=== PATIENT | female | born 1935 | race Caucasian/White ===

== ENCOUNTER 2023-07-05 13:16 | Emergency (ER) | payer MEDICARE, OTHER, SELFPAY ==
--- NOTE | ~2023-07-05 | XR_ITS ---
XR scapula LT DATE: 07/05/2023 14:09 INDICATION: Recent fall. Scapular pain for 6 weeks. TECHNIQUE: AP and lateral views COMPARISON: None FINDINGS: There is diffuse osteopenia. There is mild osteophyte is at the left glenohumeral joint. Fracture or bone destruction of the left scapula is detected. Scoliosis and degenerative spurring of the thoracic spine. IMPRESSION: Osteopenia Mild glenohumeral osteoarthritis Reviewed, dictated and finalized at location A.
[2023-07-05 13:40] VITALS: PULSE 52; RESP 16; TEMP 36.7
--- NOTE | 2023-07-05 13:55 | ED.GENADULT ---
HPI - General Adult General Chief complaint: Extremity Injury, Upper Stated complaint: Female Urogenital Time Seen by Provider: 07/05/23 13:38 Source: patient, family and RN notes reviewed History of Present Illness HPI narrative: Family presents patient today with a few complaints. Patient has been having left posterior shoulder pain for 4-6 weeks. Unsure of causes. Pain increases with movement. Denies numbness or tingling. Denies radiation of the pain. Patient has been taking Tylenol a without relief. Pain decreases her sleep at night. She has not had her shoulder evaluated prior to arrival today. Patient fell 2 days ago at home while using her walker. She does have a small skin tear on the right forearm that is dressed with a large Band-Aid. Denies any additional complaints related to this fall. They also believe patient may have a UTI. She has had 1 episode of vomiting per week for the past 2 weeks. Patient denies any urinary symptoms to include dysuria, frequency, abdominal pain, hematuria. States that she knows she does not drink enough water, but this is a chronic issue for her. 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 Family deny any acute mental status changes, but does report some increased confusion over the last several months. Related Data Home Medications Medication Instructions Recorded Confirmed carbidopa 10 mg-levodopa 100 mg 1 tablet PO BID 01/15/23 01/15/23 tablet docosahexaenoic acid (dha)-epa 1 cap PO DAILY 01/15/23 01/15/23 capsule latanoprost 0.005 % eye drops 1 drp EACH EYE QPM 01/15/23 01/15/23 levothyroxine 75 mcg tablet 75 mcg PO DAILY 01/15/23 01/15/23 losartan 100 mg tablet 100 mg PO DAILY 01/15/23 01/15/23 multivitamin 1 tablet PO DAILY 01/15/23 01/15/23 apixaban 2.5 mg tablet (Eliquis) 2.5 mg PO DAILY 07/05/23 07/05/23 Allergies Allergy/AdvReac Type Severity Reaction Status Date / Time No Known Allergies Allergy Verified 07/05/23 14:17 Review of Systems Review of Systems: CONSTITUTIONAL: Denies body aches, fever, chills, or sweats. EYES: Denies visual changes, redness, or discharge. ENT: Denies rhinorrhea, congestion, sore throat, or otalgia. CARDIOVASCULAR: Denies chest pain, palpitations, or edema. RESPIRATORY: Denies cough or dyspnea. GASTROINTESTINAL: Denies abdominal pain, nausea, or diarrhea.+ vomiting GENITOURINARY: Denies dysuria or hematuria. SKIN: Denies rash, itching, or wounds. MUSCULOSKELETAL: Denies back pain, or myalgia.+ left shoulder pain NEUROLOGIC: Denies headache, numbness, tingling, or weakness. PSYCH: Denies depression or anxiety. [facility], [facility] Social History Social History Smoking status: Never smoker Second hand tobacco smoke exposure: No Alcohol intake: never Substance use: never Spiritual care concerns: No Comments At time of signature, I have reviewed and agree with nursing past medical, surgical, social and family history unless otherwise noted. Please see nursing chart for further information. There is no relevant family history pertinent to the presenting complaint Exam Narrative: GENERAL: Well-appearing, well-nourished, and in no acute distress. HEAD: Normocephalic, atraumatic. EYES: EOMI. No redness or drainage. Conjunctivae normal. ENT: Mucous membranes pink and moist. NECK: Normal AROM. CHEST: No respiratory distress. Clear to auscultation. HEART: Regular rate and rhythm. No murmur appreciated. Normal peripheral pulses. ABDOMEN: Soft, nontender, nondistended, normal active bowel sounds. MUSCULOSKELETAL: No bony tenderness of the spine. EXTREMITIES: Bony tenderness to the left medial scapular border. Normal range of motion of the left shoulder with increased pain with overhead reach. SKIN: Warm, dry, no rash. Capillary refill normal. Normal skin turgor. NEURO: No focal deficits. Alert and oriented x3. Gait steady. PSYCH: Normal affect. No signs
[2023-07-05 14:00] VITALS: BP 97/44; PULSE 52; RESP 16; TEMP 36.7; O2SAT 96
== END 2023-07-05 14:45 | disposition home or self-care (01) ==
PROVIDERS: Emergency Provider Nurse Practitioner
DX: M25.512 Pain in left shoulder (principal); R41.0 Disorientation, unspecified; G20 Parkinson's disease; F02.80 Dementia in other diseases classified elsewhere, unspecified severity, without behavioral disturbance, psychotic disturbance, mood disturbance, and anxiety; I48.91 Unspecified atrial fibrillation; J44.9 Chronic obstructive pulmonary disease, unspecified; E03.9 Hypothyroidism, unspecified; Z85.3 Personal history of malignant neoplasm of breast; Z90.13 Acquired absence of bilateral breasts and nipples
CPT/HCPCS: 73010; 81003; 87086; 87088; 99213; G0463

== ENCOUNTER 2024-06-13 10:53 | Emergency (ER) | payer MEDICARE, OTHER, SELFPAY ==
--- NOTE | ~2024-06-13 | XR_ITS ---
AP view of the pelvis and AP and lateral views of the left hip Clinical history: Pain Findings: Probable acute fractures of the left superior and inferior pubic rami, mildly displaced. Pr ior ORIF of the left proximal femur noted.. Bilateral hip and SI joint spaces are preserved. There is degenerative spondylosis of the visualized lower lumbar spine. Soft tissues are unremarkable. Impression: Acute fractures of the left superior-inferior pubic rami. Prior ORIF the proximal left femur with healed fracture deformity. Degenerative spondylosis of the visualized lower lumbar spine. Reviewed, dictated and finalized at location . Impression: Acute fractures of the left superior-inferior pubic rami. Prior ORIF the proximal left femur with healed fracture deformity. Degenerative spondylosis of the visualized lower lumbar spine.
[2024-06-13 11:11] VITALS: BP 106/51; PULSE 76; RESP 18; TEMP 36.8; O2SAT 98
--- NOTE | 2024-06-13 11:44 | ED.FALL ---
HPI - Fall General Chief Complaint: Fall Stated Complaint: lt pelvic pain Time Seen by Provider: 06/13/24 11:33 Source: patient, family and RN notes reviewed Mode of arrival: wheelchair Limitations: no limitations History of Present Illness HPI Narrative: Family present patient today complaining of left hip pain. States she was staying at a friend's house 2 weeks ago and came home with a hip injury. Prior to 2 weeks ago, patient was ambulating with a walker. Now she is primarily getting around in a wheelchair and is painful to stand. She can only stand with help. She has been taking ibuprofen for pain. She had a left hip repair in 2022 due to fracture. Family states they or told by her home health nurse that she has some bed sores as well. They have not yet looked at them. History of dementia and parkinson's disease. Related Data Home Medications Medication Instructions Recorded Confirmed carbidopa 10 mg-levodopa 100 mg 2 tablet PO BID 01/15/23 07/05/23 tablet levothyroxine 75 mcg tablet 75 mcg PO DAILY 01/15/23 07/05/23 multivitamin 1 tablet PO DAILY 01/15/23 07/05/23 mirtazapine 30 mg tablet mg 06/13/24 Allergies Allergy/AdvReac Type Severity Reaction Status Date / Time No Known Allergies Allergy Verified 06/13/24 11:17 Review of Systems Review of Systems: CONSTITUTIONAL: Denies body aches, fever, chills, or sweats. EYES: Denies visual changes, redness, or discharge. ENT: Denies rhinorrhea, congestion, sore throat, or otalgia. CARDIOVASCULAR: Denies chest pain, palpitations, or edema. RESPIRATORY: Denies cough or dyspnea. GASTROINTESTINAL: Denies abdominal pain, nausea, vomiting, or diarrhea. GENITOURINARY: Denies dysuria or hematuria. SKIN: Denies rash, itching, or wounds. MUSCULOSKELETAL: + left hip injury NEUROLOGIC: Denies headache, numbness, tingling, or weakness. PSYCH: Denies depression or anxiety. [facility] Social History Social History Smoking status: Never smoker Second hand tobacco smoke exposure: No Alcohol intake: never Substance use: never Spiritual care concerns: No Comments At time of signature, I have reviewed and agree with nursing past medical, surgical, social and family history unless otherwise noted. Please see nursing chart for further information. There is no relevant family history pertinent to the presenting complaint Exam Narrative: GENERAL: Well-appearing, well-nourished, and in no acute distress. HEAD: Normocephalic, atraumatic. EYES: EOMI. No redness or drainage. Conjunctivae normal. NECK: Normal AROM. CHEST: No respiratory distress. EXTREMITIES: Tenderness to posterior hip area. No shortening or rotation noted. Distal sensation intact. Capillary refill normal. Pedal pulses normal. SKIN: Warm, dry, no rash. Capillary refill normal. Normal skin turgor. NEURO: No focal deficits. Alert and oriented x3. Gait steady. PSYCH: Normal affect. No signs of depression or anxiety. Course Course Level of Care: Express Care Visit Vital Signs Vital signs: Vital Signs Temperature 98.3 F 06/13/24 11:11 Pulse Rate 76 06/13/24 11:11 Respiratory Rate 18 06/13/24 11:11 Blood Pressure 106/51 L 06/13/24 11:11 Pulse Oximetry 98 06/13/24 11:11 Oxygen Delivery Room Air 06/13/24 11:11 Temperature 98.3 F 06/13/24 11:11 Pulse Rate 76 06/13/24 11:11 Respiratory Rate 18 06/13/24 11:11 Blood Pressure 106/51 L 06/13/24 11:11 Pulse Oximetry 98 06/13/24 11:11 Oxygen Delivery Room Air 06/13/24 11:11 Reviewed Transfer Transfered to: [place] Transportation: Other (Private vehicle) Transfer rationale: Pelvic fracture Accepting physician: John MDM - Fall MDM Narrative Medical decision making narrative: Due to patient's x-ray, exam, and the fact that she is unable to ambulate, she will be transferred to the ER for further evaluation. Differential Diag
== END 2024-06-13 12:33 | disposition short-term general hospital (02) ==
PROVIDERS: Emergency Provider Nurse Practitioner
DX: S32.512A Fracture of superior rim of left pubis, initial encounter for closed fracture (principal); S32.592A Other specified fracture of left pubis, initial encounter for closed fracture; X58.XXXA Exposure to other specified factors, initial encounter; G20.A1 Parkinson's disease without dyskinesia, without mention of fluctuations; F02.80 Dementia in other diseases classified elsewhere, unspecified severity, without behavioral disturbance, psychotic disturbance, mood disturbance, and anxiety; I48.91 Unspecified atrial fibrillation; J44.9 Chronic obstructive pulmonary disease, unspecified; E03.9 Hypothyroidism, unspecified; Z85.3 Personal history of malignant neoplasm of breast; Z90.13 Acquired absence of bilateral breasts and nipples
CPT/HCPCS: 73502; 99213; G0463

== ENCOUNTER 2024-06-13 12:50 | Emergency (ER) | payer MEDICARE, OTHER, SELFPAY ==
[2024-06-13 12:57] VITALS: RESP 14; O2SAT 98
[2024-06-13 12:59] VITALS: BP 155/74; PULSE 67; RESP 22; TEMP 36.3; O2SAT 98
[2024-06-13 13:59] VITALS: BP 161/68; PULSE 67; RESP 14; TEMP 36.5; O2SAT 97
--- NOTE | 2024-06-13 14:27 | ED.GENADULT ---
HPI - General Adult General Chief complaint: Unspecified Stated complaint: broken pelvis Time Seen by Provider: 06/13/24 13:15 Source: family Mode of arrival: wheelchair Limitations: dementia History of Present Illness HPI narrative: Patient is an 88-year-old female presents ER with superior and inferior pubic ramus fractures on left side. Patient has had multiple falls over last couple of weeks. She is typically ambulatory with a walker but is now requiring full assistance. She is on hospice for her dementia and Parkinson's. Family feels she may need to be in a jail facility. She was sent here from the urgent care. No additional issues. Related Data Home Medications Medication Instructions Recorded Confirmed carbidopa 10 mg-levodopa 100 mg 2 tablet PO BID 01/15/23 07/05/23 tablet levothyroxine 75 mcg tablet 75 mcg PO DAILY 01/15/23 07/05/23 multivitamin 1 tablet PO DAILY 01/15/23 07/05/23 mirtazapine 30 mg tablet mg 06/13/24 Allergies Allergy/AdvReac Type Severity Reaction Status Date / Time No Known Allergies Allergy Verified 06/13/24 11:17 Review of Systems Review of Systems: ROS unobtainable: Yes unobtainable due to mental status PMFSH Past Medical History Medical History (Updated 06/13/24 @ 16:04 by Michael Lopez MD) Anxiety Atrial fibrillation COPD (chronic obstructive pulmonary disease) Depression Hypertension Hypothyroid Parkinson's disease Surgical History Surgical History (Updated 06/13/24 @ 14:28 by Michael Lopez MD) History of hip replacement Social History Social History Smoking status: Never smoker Second hand tobacco smoke exposure: No Alcohol intake: never Substance use: never Spiritual care concerns: No Exam Narrative: GENERAL: Chronically ill-appearing, well-nourished, and in no acute distress. HEAD: Normocephalic, atraumatic. ENT: Mucous membranes moist. CHEST: Clear to auscultation. No respiratory distress. HEART: Regular rate and rhythm. Normal peripheral pulses. ABDOMEN: Soft, nontender, nondistended. EXTREMITIES: Increased pain with attempted range of motion the left hip. No shortening or external rotation. SKIN: Warm, dry, no rash. NEURO: Alert and oriented x1. PSYCH: Normal mood and affect. Course Course Emergency Course: After speaking with care coordination and hospice the family feels comfortable taking the patient home and caring for her there. They will determine if they can get PT at her house and they are not wanting to go to a chcf at this time. Vital Signs Vital signs: Vital Signs Respiratory Rate 14 06/13/24 12:57 Pulse Oximetry 98 06/13/24 12:57 Temperature 97.7 F 06/13/24 13:59 Pulse Rate 67 06/13/24 13:59 Respiratory Rate 14 06/13/24 13:59 Blood Pressure 161/68 H 06/13/24 13:59 Pulse Oximetry 97 06/13/24 13:59 Medical Decision Making Vital Signs Vital Signs: Vital Signs Respiratory Rate 14 06/13/24 12:57 Pulse Oximetry 98 06/13/24 12:57 Temperature 97.7 F 06/13/24 13:59 Pulse Rate 67 06/13/24 13:59 Respiratory Rate 14 06/13/24 13:59 Blood Pressure 161/68 H 06/13/24 13:59 Pulse Oximetry 97 06/13/24 13:59 Discharge Plan Discharge Clinical Impression: Closed fracture of left inferior pubic ramus, Closed fracture of left superior pubic ramus Patient Disposition: Home, Self-Care Condition: Stable Instructions: Pelvic Fracture (ED) Additional Instructions: Contact your hospice company for further evaluation and treatment. He will be discharged with Tylenol with hydrocodone to treat the pain however they may be able prescribe other forms of pain control or you. If you choose to follow up with Orthopedic surgery you may in 1 month. The 1st 2 weeks of this injury is most difficulty with bearing weight. Prescriptions: New hydrocodone-acetaminophen
--- NOTE | 2024-06-13 15:37 | PCCCNOTE ---
Consulted regarding options for care. Pt has fractured pubic rami and finding difficult to be mobile. Pt on [facility]. I attempted to contact [facility] to discuss care options. Spoke with triage person at [facility] but they indicated that someone from administration would need to contact me regarding options. Never received a callback. Family to take pt home and follow up with [facility] tomorrow.
[2024-06-13 16:00] VITALS: BP 158/62; PULSE 66; RESP 17; TEMP 36.8; O2SAT 98
[2024-06-13 17:01] VITALS: BP 147/82; PULSE 66; RESP 18; O2SAT 98
== END 2024-06-13 16:51 | disposition hospice, home (50) ==
PROVIDERS: Emergency Provider Emergency Medicine
DX: S32.592D Other specified fracture of left pubis, subsequent encounter for fracture with routine healing (principal); F03.90 Unspecified dementia, unspecified severity, without behavioral disturbance, psychotic disturbance, mood disturbance, and anxiety; G20.A1 Parkinson's disease without dyskinesia, without mention of fluctuations; I48.91 Unspecified atrial fibrillation; I10 Essential (primary) hypertension; J44.9 Chronic obstructive pulmonary disease, unspecified; E03.9 Hypothyroidism, unspecified; Z96.649 Presence of unspecified artificial hip joint; W19.XXXD Unspecified fall, subsequent encounter
CPT/HCPCS: 73502; 99283